=== PATIENT | female | born 1965 | race Asian ===

== ENCOUNTER 2019-08-08 10:50 | Outpatient (CLI) | payer OTHER ==
--- NOTE | 2019-08-08 11:31 | XRAY Report ---
Reason: RIGHT KNEE PAIN Procedure Date: 08/08/2019 Accession Number: [id number] / [id number] Procedure: WCP - Knee 2 View RT CPT Code: Final Report FULL RESULT: EXAM: RIGHT KNEE RADIOGRAPHY EXAM DATE: 08/08/2019 11:07 AM. CLINICAL HISTORY: Severe right knee pain and swelling for 1 month. The patient does not recall an episode of trauma. Patient reports knee surgery 38 years prior to this examination. COMPARISON: None. TECHNIQUE: 2 views. FINDINGS: Bones: Normal bone mineralization. No fractures or bone lesions. There is a partially threaded cortical screw in the posterior aspect of the proximal right tibia and a staple in the medial aspect of the medial femoral condyle. Joints: There is a moderate right knee joint effusion. No subluxation. No significant degenerative changes. Soft Tissues: No appreciable soft tissue swelling. IMPRESSION: 1. Moderate right knee joint effusion. 2. No fracture or subluxation. 3. Chronic post surgical changes in the distal right femur and proximal right tibia. RAD[facility]
== END 2019-08-08 23:59 | disposition home or self-care (01) ==
LOC: DI.WCP 10:50
PROVIDERS: ATTEND Physician Assistant
DX: M25.461 Effusion, right knee (principal)

== ENCOUNTER 2019-08-29 08:00 | Outpatient (CLI) | payer OTHER ==
[2019-08-29 12:00] LABS: BASOPHILS # (AUTO) 0.1 10^3/uL (0.0-0.1); BASOPHILS % (AUTO) 1.4 %; EOSINOPHILS # (AUTO) 0.4 10^3/uL (0.0-0.7); EOSINOPHILS % (AUTO) 7.8 %; HGB - HEMOGLOBIN 12.7 g/dL (12.0-16.0); LYMPHOCYTES # (AUTO) 1.6 10^3/uL (1.5-3.5); LYMPHOCYTES % (AUTO) 32.4 %; MEAN CORPUSCULAR HEMOGLOBIN 30.2 pg (27.0-31.0); MEAN CORPUSCULAR HGB CONC 31.9 g/dL (32.0-36.0); MEAN CORPUSCULAR VOLUME 94.5 fL (81.0-99.0); MEAN PLATELET VOLUME 11.1 fL (7.9-10.8); MONOCYTES # (AUTO) 0.3 10^3/uL (0.0-1.0); MONOCYTES % (AUTO) 6.2 %; NEUTROPHILS # (AUTO) 2.6 10^3/uL (1.5-6.6); NEUTROPHILS % (AUTO) 52.2 %; PLT - PLATELET COUNT 273 10^3/uL (130-450); RED BLOOD COUNT 4.21 10^6/uL (4.20-5.40); RED CELL DISTRIBUTION WIDTH 13.2 % (12.0-15.0)
[2019-08-29 12:18] LABS: ALBUMIN 3.9 g/dL (3.2-5.5); ALBUMIN/GLOBULIN RATIO 1.2 (1.0-2.2); ALKALINE PHOSPHATASE 56 IU/L (42-121); ALT ALANINE AMINOTRANSFERASE 21 IU/L (10-60); AST ASPARTATE AMINOTRANSFERASE 25 IU/L (10-42); BILIRUBIN,TOTAL 0.7 mg/dL (0.2-1.0); BUN - BLOOD UREA NITROGEN 20 mg/dL (6-20); CALCIUM 9.2 mg/dL (8.5-10.3); CARBON DIOXIDE - CO2 28 mmol/L (21-32); CHLORIDE 105 mmol/L (101-111); CHOL/HDL RATIO 3.4 (<4.4); CHOLESTEROL 230 mg/dL; CREATININE 0.8 mg/dL (0.4-1.0); GLUCOSE 84 mg/dL (70-100); HDL CHOLESTEROL 67 mg/dL; LDL CHOLESTEROL,CALCULATED 142 mg/dL; LDL/HDL RATIO 2.1 (<4.4); SODIUM 138 mmol/L (135-145); TOTAL PROTEIN 7.1 g/dL (6.7-8.2); VLDL CHOLESTEROL 21 mg/dL
== END 2019-08-29 23:59 | disposition home or self-care (01) ==
LOC: LAB.WCP 08:00
PROVIDERS: ATTEND Family Medicine
DX: Z00.00 Encounter for general adult medical examination without abnormal findings (principal)
CPT/HCPCS: 36415; 80053; 80061; 83721; 84443; 85025

== ENCOUNTER 2019-09-07 11:11 | Outpatient (CLI) | payer OTHER ==
--- NOTE | 2019-09-08 02:33 | XRAY Report ---
Reason: SHOULDER JOINT PAIN RIGHT Procedure Date: 09/07/2019 Accession Number: [id number] / [id number] Procedure: WCP - Shoulder 2 View RT CPT Code: Final Report FULL RESULT: EXAM: RIGHT SHOULDER RADIOGRAPHY EXAM DATE: 09/07/2019 11:57 AM. CLINICAL HISTORY: SHOULDER JOINT PAIN RIGHT. COMPARISON: None. TECHNIQUE: 3 views. FINDINGS: Bones: Normal. No fracture or bone lesion. Joints: The glenohumeral and acromioclavicular joints are normal. Soft tissues: The visualized hemithorax is unremarkable. No soft tissue swelling. IMPRESSION: Normal shoulder radiography. RADIA
== END 2019-09-07 23:59 | disposition home or self-care (01) ==
LOC: DI.WCP 11:11
PROVIDERS: ATTEND Physician Assistant
DX: M25.511 Pain in right shoulder (principal)

== ENCOUNTER 2019-12-17 13:29 | Outpatient (CLI) | payer OTHER ==
--- NOTE | 2019-12-17 14:15 | XRAY Report ---
Reason: LEFT FOOT PAIN Procedure Date: 12/17/2019 Accession Number: [id number] / [id number] Procedure: WCP - Foot 3 View LT CPT Code: Final Report FULL RESULT: PROCEDURE: Foot 3 View LT INDICATIONS: LEFT FOOT PAIN TECHNIQUE: 3 views of the foot were acquired. COMPARISON: None. FINDINGS: Bones: No fractures or dislocations. No suspicious bony lesions. Soft tissues: No tibiotalar joint effusion. Achilles tendon appears normal. IMPRESSION: Source of persistent pain is not identified. Reportedly injury was from stepping on a rock and pain is at the fifth metatarsal area. Reviewed by: Waylon Burger MD on 12/17/2019 2:14 PM PDT Approved by: Waylon Burger MD on 12/17/2019 2:14 PM PDT Station ID: [id number]
== END 2019-12-17 23:59 | disposition home or self-care (01) ==
LOC: DI.WCP 13:29
PROVIDERS: ATTEND Nurse Practitioner Family
DX: M79.672 Pain in left foot (principal)

== ENCOUNTER 2020-08-20 14:07 | Outpatient (CLI) | payer SELFPAY ==
--- NOTE | 2020-08-20 14:49 | XRAY Report ---
PROCEDURE: Shoulder 3 View RT INDICATIONS: R SHOULDER PX TECHNIQUE: 2 views of the shoulder were acquired. COMPARISON: None. FINDINGS: Bones: No fractures or dislocations. No suspicious bony lesions. Visualized ribs appear intact. Soft tissues: No suspicious soft tissue calcifications. IMPRESSION: No acute fracture. No osseous lesion. If symptoms and/or clinical suspicion for patholog y continue, further assessment with repeat plain films, or advanced imaging (e.g., CT, MRI, or bone s can) is recommended for further assessment. Reviewed by: Andrzej Hammond MD on 08/20/2020 2:48 PM PDT Approved by: Andrzej Hammond MD on 08/20/2020 2:48 PM PDT Station ID: [id number]
== END 2020-08-20 23:59 ==
LOC: DI.N 14:07
PROVIDERS: ATTEND Family Medicine
DX: M25.511 Pain in right shoulder (principal)

== ENCOUNTER 2021-07-09 08:00 | Outpatient (CLI) | payer OTHER ==
--- NOTE | 2021-07-09 19:59 | XRAY Report ---
PROCEDURE: Forearm RT INDICATIONS: PAIN IN RIGHT ARM TECHNIQUE: 2 views of the forearm were acquired. COMPARISON: None FINDINGS: Bones: No fractures or dislocations. No suspicious bony lesions. Soft tissues: No suspicious soft tissue calcifications or masses. IMPRESSION: No forearm fracture or dislocation. No gross soft tissue abnormality. Reviewed by: Etienne Merrill MD on 07/09/2021 7:58 PM PST Approved by: Etienne Merrill MD on 07/09/2021 7:58 PM PST Station ID: [id number]
== END 2021-07-09 23:59 ==
LOC: DI.N 08:00
PROVIDERS: ATTEND Nurse Practitioner
DX: M79.601 Pain in right arm (principal)

== ENCOUNTER 2022-01-22 12:19 | Outpatient (CLI) | payer OTHER ==
--- NOTE | 2022-01-26 10:24 | Mammography Report ---
BILATERAL DIGITAL DIAGNOSTIC MAMMOGRAM 3D/2D: 01/22/2022 CLINICAL: Palpable left axilla lump. No prior exams were available for comparison. There are scattered areas of fibroglandular density in both breasts (category b / 25%-50% glandular t issue). No significant masses, calcifications, or other findings are seen in either breast. IMPRESSION: INCOMPLETE: NEEDS ADDITIONAL IMAGING EVALUATION No significant masses, calcifications, or other findings are seen in either breast. Ultrasound of th e palpable region of concern n the left axilla will be performed. Based on the Tyrer Cuzick model (a risk assessment model) the patients lifetime risk is 10.2% and he r 10 year risk is 3.7%. According to the ACR, ACS, and NCCN guidelines, an annual breast MRI exam lisa ng with mammogram is recommended if the patients lifetime risk is 20% or greater. This exam was interpreted at Station ID: [id number]. NOTE: For mammograms, a report in lay terms will be sent to the patient. Approximately 15% of breast malignancies will not be visualized mammographically. In the management of a palpable breast mass, a negative mammogram must not discourage biopsy of a clinically suspicious lesion. Electronically Signed By: Arnold Saldaña M.D. jr/:01/22/2022 13:56:20 ACR BI-RADS Category 0: Incomplete 3340F PARENCHYMAL PATTERN: (A) - The breast(s) demonstrate(s) scattered fibroglandular densities. BI-RADS CATEGORY: (0) - 0 Ultrasound [id number] Immediate follow-up LATERALITY: (B)
--- NOTE | 2022-01-26 10:24 | Ultrasound Report ---
LIMITED ULTRASOUND OF LEFT BREAST: 01/22/2022 CLINICAL: Palpable left axilla lump / thickening. Comparison is made to exam dated: 01/22/2022 mammogram - [facility]. Color flow and real-time ultrasound of the left breast were performed. Lea scale images of the melissa l-time examination were reviewed. There is a benign normal left axillary lymph node. This correlates as palpated. IMPRESSION: BENIGN There is no sonographic evidence of malignancy. The normal left axillary lymph node is benign. A 1 year screening mammogram is recommended. This exam was interpreted at Station ID: [id number]. Electronically Signed By: Arnold Saldaña M.D., jr/kami:01/22/2022 14:05:19 Ultrasound BI-RADS: 2 Benign BI-RADS CATEGORY: (2) - 2 RECOMMENDATION: (ANNUAL) - Recommend routine annual screening mammography. [id number] 1 year screening LATERALITY: (B)
== END 2022-01-22 12:20 | disposition home or self-care (01) ==
LOC: DI 12:19
PROVIDERS: ATTEND Nurse Practitioner
DX: R22.2 Localized swelling, mass and lump, trunk (principal)

== ENCOUNTER 2022-09-16 09:00 | Outpatient (CLI) | payer OTHER ==
[2022-09-16 12:12] LABS: BASOPHILS # (AUTO) 0.1 10^3/uL (0.0-0.1); BASOPHILS % (AUTO) 1.9 %; EOSINOPHILS # (AUTO) 0.4 10^3/uL (0.0-0.7); EOSINOPHILS % (AUTO) 7.9 %; HCT - HEMATOCRIT 42.1 % (37.0-47.0); HGB - HEMOGLOBIN 13.6 g/dL (12.0-16.0); LYMPHOCYTES # (AUTO) 1.4 10^3/uL (1.5-3.5); LYMPHOCYTES % (AUTO) 30.8 %; MEAN CORPUSCULAR HEMOGLOBIN 30.8 pg (27.0-31.0); MEAN CORPUSCULAR HGB CONC 32.3 g/dL (32.0-36.0); MEAN CORPUSCULAR VOLUME 95.5 fL (81.0-99.0); MEAN PLATELET VOLUME 11.3 fL (7.9-10.8); MONOCYTES # (AUTO) 0.3 10^3/uL (0.0-1.0); MONOCYTES % (AUTO) 6.4 %; NEUTROPHILS # (AUTO) 2.5 10^3/uL (1.5-6.6); PLT - PLATELET COUNT 326 10^3/uL (130-450); RED BLOOD COUNT 4.41 10^6/uL (4.20-5.40); WHITE BLOOD COUNT 4.7 x10^3/uL (4.8-10.8)
[2022-09-16 12:46] LABS: ALKALINE PHOSPHATASE 57 IU/L (42-121); ALT ALANINE AMINOTRANSFERASE 18 IU/L (10-60); AST ASPARTATE AMINOTRANSFERASE 22 IU/L (10-42); BILIRUBIN,TOTAL 0.6 mg/dL (0.2-1.0); BUN - BLOOD UREA NITROGEN 24 mg/dL (6-20); CALCIUM 8.7 mg/dL (8.5-10.3); CARBON DIOXIDE - CO2 29 mmol/L (21-32); CHLORIDE 108 mmol/L (101-111); CHOL/HDL RATIO 3.4 (<4.4); CHOLESTEROL 326 mg/dL; CREATININE 0.7 mg/dL (0.4-1.0); GFR - MDRD 86 (>89); GLUCOSE 98 mg/dL (70-100); HDL CHOLESTEROL 95 mg/dL; LDL CHOLESTEROL,CALCULATED 208 mg/dL; LDL/HDL RATIO 2.2 (<4.4); SODIUM 139 mmol/L (135-145); TOTAL PROTEIN 6.1 g/dL (6.7-8.2); TRIGLYCERIDES 114 mg/dL; VLDL CHOLESTEROL 23 mg/dL
[2022-09-16 12:47] LABS: ANION GAP 4.5 (6-13)
== END 2022-09-16 09:01 | disposition home or self-care (01) ==
LOC: LAB.N 09:00
PROVIDERS: ATTEND Nurse Practitioner
DX: I10 Essential (primary) hypertension (principal); Z13.220 Encounter for screening for lipoid disorders
CPT/HCPCS: 36415; 80053; 80061; 83721; 85025

== ENCOUNTER 2023-02-06 07:57 | Outpatient (CLI) | payer OTHER ==
[2023-02-06 08:55] LABS: CHOL/HDL RATIO 3.1 (<4.4); CHOLESTEROL 220 mg/dL; HDL CHOLESTEROL 70 mg/dL; LDL CHOLESTEROL,CALCULATED 132 mg/dL; LDL/HDL RATIO 1.9 (<4.4); TRIGLYCERIDES 92 mg/dL (48-352); VLDL CHOLESTEROL 18 mg/dL
== END 2023-02-06 07:58 | disposition home or self-care (01) ==
LOC: LAB 07:57
PROVIDERS: ATTEND Nurse Practitioner
DX: E78.01 Familial hypercholesterolemia (principal)
CPT/HCPCS: 36415; 80061; 83721

== ENCOUNTER 2024-02-01 19:27 | Emergency (ER) | payer OTHER ==
--- NOTE | 2024-02-01 19:59 | ED Physician Documentation ---
PD HPI SKIN - Stated complaint Stated Complaint: HIVES - Chief complaint Chief Complaint: Wound - Additional information Additional information: 58-year-old female presents emergency department for concerns of ongoing itching and full-body rash. Patient says the symptoms started on Tuesday originally she thought that it was a heat rash because she was very hot and sweaty at work but since cooling down she has had no alleviation of symptoms. She went to the walk-in clinic on Tuesday where they prescribed p.o. Benadryl topical Benadryl and told her to take Giselle and Pepcid and has had little to no relief. She says there has been nothing new no new soaps laundry detergents lotions or medications or supplements that she can think of. No shortness of breath no chest pain. Patient says that she has missed the last 2 days of work because she is so itchy she says that she is feeling very anxious and she feels like she is on the verge of having a panic attack because she wants to scratch her skin off PD PAST MEDICAL HISTORY - Past Medical History Past Medical History: No Cardiovascular: None Respiratory: None Neuro: None Endocrine/Autoimmune: None GI: None BUSINESS INTELLIGENCE ENGINEER: None : None HEENT: None Psych: None Musculoskeletal: None Derm: None - Past Surgical History Past Surgical History: Yes General: Other Ortho: Other /BUSINESS INTELLIGENCE ENGINEER: section - Present Medications Home Medications: Ambulatory Orders Medication Instructions Recorded Confirmed hydrOXYzine PAMOATE [Vistaril] 25 mg PO Q6H PRN 7 Days #21 cap 02/01/24 predniSONE [Deltasone] 60 mg PO DAILY 5 Days #15 tablet 02/01/24 - Allergies Allergies/Adverse Reactions: Allergies Allergy/AdvReac Type Severity Reaction Status Date / Time No Known Drug Allergies Allergy Verified 02/01/24 19:54 - Social History Does the pt smoke?: No Smoking Status: Never smoker Does the pt drink ETOH?: Yes Does the pt have substance abuse?: No - Immunizations Immunizations are current?: Yes - POLST Patient has POLST: No PD ED PE NORMAL - Vitals Vital signs reviewed: Yes - General General: Alert and oriented X 3, No acute distress, Well developed/nourished - HEENT HEENT: Atraumatic, PERRL, Moist mucous membranes, Pharynx benign - Respiratory Respiratory: No respiratory distress, Clear bilaterally - Derm Derm: Warm and dry, Other (Faint hives throughout body mostly to bilateral upper extremity and bilateral lower extremity) Results - Vitals Vitals: Vital Signs - 24 hr 02/01/24 02/01/24 19:49 21:20 Temperature 36.3 C L 36.6 C Heart Rate 79 74 Respiratory 17 14 Rate Blood Pressure 153/74 H 136/58 H O2 Saturation 98 97 Oxygen O2 Source Room air PD Medical Decision Making - ED course ED course: This patient presents with symptoms consistent with acute hypersensitivity reaction, likely acute allergic reaction. Presentation not consistent with acute anaphylaxis (lack of pulmonary, dermatologic, cardiovascular or GI symptoms, lack of hypotension or exposure to known allergen), angioedema, serum sickness (no recent drug exposure, lacks fevers, arthralgias). No evidence of airway compromise or shock at this time. Patient improved with Hydroxyzine, hydrocortisone, steroids. No need for epinephrine. patient to keep food diary, and to follow up with PMD for allergy testing. Prescription of steroid taper dose was sent to her preferred pharmacy as well as hydroxyzine and she is told to follow-up with dermatology tomorrow for further evaluation of what is causing this rash. Departure - Departure Disposition: 01 Home, Self Care Clinical Impression: Urticaria Instructions: ED Urticaria Prescriptions: predniSONE [Deltasone] 60 mg PO DAILY 5 Days #15 tablet hydrOXYzine PAMOATE [Vistaril] 25 mg PO Q6H PRN 7 Days #21 cap PRN Reason: Itching Comments: Thank you for trusting us with your care. We have given you topical hydrocortisone you can buy this [id number] and apply to your body for itching we also have given you some steroids and I sent a prescription of steroids, prednisone to your preferred pharmacy. We have also given you a shot of hydroxyzine and I have given this to you and a prescription in the pill form as well you can take this up to 3 times a day as needed for itching as well. If you are still having rash and itching sensation tomorrow I would follow-up with [facility] for further evaluation sometimes they are able to get into same-day visits their phone number is [phone]. Please come back to the emergency department if you are having any worsening symptoms, shortness of breath, or any other concerning emergent symptoms. Forms: PCP List Discharge Date/Time: 02/01/24 21:23
[2024-02-01] MEDS: predniSONE 20 MG TABLET PO STA (20:45)
[2024-02-01] MEDS: HYDROCORTISONE 1% CREAM 28 GM TUBE TOP SCH (20:48)
[2024-02-01] MEDS: CHERRY SYRUP 10 ML UDC PO ONE (20:48)
[2024-02-01] MEDS: DEXAMETHASONE 10 MG/ML VIAL PO STA (20:49)
[2024-02-01 21:26] VITALS: BP 136/58; O2SAT 97
== END 2024-02-01 21:23 | disposition home or self-care (01) ==
LOC: ED 19:27
DX: L50.9 Urticaria, unspecified (principal)
CPT/HCPCS: 96372; 99283; A9270; J3410; J7512